=== PATIENT | male | born 1950 | race Caucasian/White ===

== ENCOUNTER 2017-06-19 14:58 | Outpatient (CLI) | payer MEDICARE, OTHER ==
--- NOTE | 2017-06-19 17:03 | Ultrasound Report ---
AORTA SCREEN: 06/19/2017 CLINICAL INDICATION: Screening. TECHNIQUE: Real-time sonographic imaging was performed by the client architect through the aorta. Multiple patient relations representative static images were saved for review. FINDINGS: The abdominal aorta is normal in caliber, measuring 2.6 cm proximally , 2.3 cm in the midportion, and 1.9 cm distally. The iliacs are normal in caliber. No free fluid is present. IMPRESSION: NO EVIDENCE OF AN ABDOMINAL AORTIC ANEURYSM. TD: 06/19/2017 17:03 CHARANJIT
== END 2017-06-19 14:59 | disposition home or self-care (01) ==
LOC: DI 14:58
PROVIDERS: ATTEND Internal Medicine
DX: Z13.6 Encounter for screening for cardiovascular disorders (principal)
CPT/HCPCS: 76706